=== PATIENT | male | born 1985 | race Caucasian/White ===

== ENCOUNTER 2018-08-22 07:51 | Outpatient (CLI) | payer OTHER ==
--- NOTE | 2018-08-22 09:10 | MRI ---
MRI OF THE RIGHT KNEE: DATE: 08/22/2018. PROVIDED CLINICAL HISTORY: Right knee pain. FINDINGS: The anterior cruciate ligament, posterior cruciate ligament, medial collateral ligament, and lateral collateral ligamentous complex demonstrate an intact MR appearance, as does the extensor mechanism. The medial and lateral menisci demonstrate no evidence for a tear. No focal articular cartilage defect is apparent. The amount of fluid within the knee joint appears physiologic. No focal concerning regional marrow or muscular signal abnormality apparent. IMPRESSION: No evidence for internal derangement. POS: [facility]
== END 2018-08-22 07:52 | disposition home or self-care (01) ==
LOC: TBSIIMAG 07:51
PROVIDERS: ATTEND Orthopaedic Surgery
DX: M23.91 Unspecified internal derangement of right knee (principal)